=== PATIENT | male | born 1945 | race Caucasian/White ===

== ENCOUNTER 2017-01-21 05:52 | Inpatient (IN) | payer OTHER ==
[2017-01-13 10:47] LABS: HEMATOCRIT 43.7 % (42.0-52.0); HEMOGLOBIN 14.6 gm/dL (14.0-18.0); MCH 29.4 pg (26.0-34.0); MCHC 33.5 g/dL (28.0-37.0); MCV 87.7 fL (80.0-100.0); RBC 4.98 mil/uL (4.50-6.00); RDW 13.9 % (10.5-14.5); URINE BILIRUBIN NEGATIVE (Negative); URINE BLOOD NEGATIVE (Negative); URINE COLOR YELLOW; URINE GLUCOSE-RANDOM* NEGATIVE (Negative); URINE KETONES NEGATIVE (Negative); URINE LEUKOCYTES-REFLEX NEGATIVE (Negative); URINE PROTEIN (DIPSTICK) NEGATIVE (Negative); WBC 7.1 thou/uL (4.0-11.0)
[2017-01-13 11:01] LABS: ALBUMIN 3.9 g/dL (3.4-5.0); CALCIUM 9.1 mg/dL (8.5-10.1); POTASSIUM 4.9 mmol/L (3.5-5.1); TOTAL BILIRUBIN 1.2 mg/dL (<0.1-1.0)
[2017-01-13 11:04] LABS: APTT 27.8 Seconds (24.5-32.8); PROTIME 10.5 Seconds (9.3-11.4)
[~2017-01-21] VITALS: Ht 193 cm; Wt 113.4 kg
[2017-01-21] VITALS (9 sets, daily range): BP systolic 91–114; BP diastolic 8–72
--- NOTE | ~2017-01-21 | EKG ---
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: maricarmen wick : 1945 Requested By: Vinnie Ball Order Number: [id number] MD: Avery Thibodeaux Measurements Intervals [place] Rate: 53 P: 81 MD: 236 QRS: 91 QRSD: 108 T: 74 QT: 436 QTc: 410 Interpretive Statements Sinus rhythm Prolonged MD interval Right axis deviation Compared to ECG 11/12/2014 06:31:33 No significant change was found Electronically Signed On 01-14-2017 8:07:07 CDT by Avery Thibodeaux [email or web address] <ELECTRONICALLY SIGNED> By: Avery Thibodeaux MD, [facility] 01/14/17 0807 D: [id number] 27 Avery Thibodeaux MD, FACC /EPI
--- NOTE | ~2017-01-21 | O ---
[facility] [place] [address] OPERATIVE REPORT Name: MARIO CAVAZOS Room #: 242-P [facility] IN ..#: [id number] Admission: 01/21/17 Attend Phys: Vinnie Ball MD Discharge: 01/22/17 Date of : 43 Report #: [id number] THIS REPORT FOR: //name// CC: Otto Ball DATE OF SERVICE: 01/21/2017 PREOPERATIVE DIAGNOSIS: Left internal carotid artery stenosis, asymptomatic. FINAL DIAGNOSIS: Left internal carotid artery stenosis, asymptomatic. OPERATIVE PROCEDURE PERFORMED: Left internal carotid endarterectomy without patch closure. SURGEON: Vinnie Ball M.D. DIETARY AID: Beth. ANESTHESIA: General. OPERATIVE INDICATIONS: The patient is a 71-year-old male who has known history of a left internal carotid artery stenosis. This stenosis has been followed and has progressed into a high grade stenosis. This was confirmed with angiography. The patient has been asymptomatic. He is admitted and brought to the operating room now for carotid endarterectomy. OPERATIVE SUMMARY: The patient was brought in the operating room and placed on the OR table in supine position. After anesthesia was induced via the general endotracheal route and monitoring lines had been positioned, the patient was prepped and draped in sterile fashion with chlorhexidine. We made via oblique incision in front of the sternocleidomastoid muscle. Dissection carried down through the subcutaneous fat and through the platysma. We dissected medial to the jugular vein and ligated the facial vein. We identified the contents of the carotid sheath and dissected free the common internal and external carotid arteries from surrounding tissue. Cranial nerve 10 and the ansa nerves were identified. Care was taken not to injure them. We did not visualize the hypoglossal nerve. We gave 15,000 units of intravenous heparin. We clamped the internal, then common, then external carotid arteries. The common carotid arteriotomy was made and extended up into the internal carotid artery. A 12-Spanish shunt was placed in the internal carotid artery and then the common carotid artery to pry blood flow to the brain during the remainder of this case. EEG was monitored and there were no changes noted. We then dissected the plaque from the vessel wall. The plaque was amputated proximally. It had nice tapering distally. An eversion endarterectomy was performed of the external carotid artery. All loose were then debrided from the vessel wall under [facility] [address] [place] [address] OPERATIVE REPORT Name: MARIO CAVAZOS Room #: 242-P [facility] IN ..#: [id number] Admission: 01/21/17 Attend Phys: Vinnie Ball MD Discharge: 01/22/17 Date of : 43 Report #: [id number] loupe magnification. Once this was satisfactory, the arteriotomy was closed primarily with a running 6-0 Prolene suture. Prior to completing the closure, the shunt was removed. The site was flushed both retrograde and antegrade and de-airing was performed by releasing the clamp on the external carotid artery. After completing the closure, the clamp on the common was released and then finally on the internal. We then gave a 100 mg of protamine to reverse the heparin. We inspected the sites, found no additional sutures needed. Doppler signals showed at least biphasic signals present in the common internal and external carotid arteries. Once satisfactory hemostasis was achieved, the wound was closed in multiple layers with absorbable suture. Procedure completed, the patient was taken to the ICU in stable condition. Neurologic exam is pending at the time of this dictation. <ELECTRONICALLY SIGNED> By: Vinnie Ball MD 01/22/17 2156 1235 1402 Vinnie Ball MD /nt
[~2017-01-21 05:52] MED LIST: ASPIR 8181 MG PO; AVAPRO 150 MG150 M1 PO; BYSTOLIC 5 MG5 M1 PO; BYSTOLIC10 MG PO; CRESTOR20 MG PO; DULERA 200 MCG/13 GM INH; FISH OIL 1,001000 M2 PO; FISH OIL 1,2001 EAC3 PO; LEVAQUIN 500 M500 M2 PO; LEVOTHYROXIN0.112 M1 PO; LIPITOR10 MG PO; MATURE MULTIVITAMIN PO; MEN'S ONE DAIL1 EAC1 PO; PLAVIX 75 MG TA75 M1 PO; PREDNISONE 5 MG5 M1 PO; PRESERVISION A1 EAC2 PO; ZETIA10 MG PO
[2017-01-22] VITALS (7 sets, daily range): BP systolic 105–137; BP diastolic 35–59
[2017-01-22 06:22] LABS: HEMATOCRIT 35.4 % (42.0-52.0); HEMOGLOBIN 12.2 gm/dL (14.0-18.0); MCH 29.8 pg (26.0-34.0); MCHC 34.4 g/dL (28.0-37.0); MCV 86.8 fL (80.0-100.0); RBC 4.08 mil/uL (4.50-6.00); RDW 13.7 % (10.5-14.5); WBC 8.7 thou/uL (4.0-11.0)
[2017-01-22 06:29] LABS: CALCIUM 8.6 mg/dL (8.5-10.1); CREATININE 0.8 mg/dL (0.7-1.3); POTASSIUM 4.1 mmol/L (3.5-5.1)
[2017-01-22] MEDS ORDERED: PLAVIX 75 MG TA75 M1 PO (09:17)
[2017-01-22] MEDS ORDERED: ASPIRIN325 PO (09:18)
[2017-01-22] MEDS ORDERED: HOME MEDICATION INH (09:21)
== END 2017-01-22 10:30 | disposition home or self-care (01) | DRG 39 ==
LOC: TBA 05:52 → ICU 05:52 → PRE 08:31 → ICU 15:20
PROVIDERS: Nurse Practitioner; Thoracic Surgery (Cardiothoracic Vascular Surgery)
PROC: 03CL0ZZ Extirpation of Matter from Left Internal Carotid Artery, Open Approach (ICD-10-PCS; principal; 2017-01-21)
PROC: 03HY32Z Insertion of Monitoring Device into Upper Artery, Percutaneous Approach (ICD-10-PCS; 2017-01-21)
PROC: 4A133B1 Monitoring of Arterial Pressure, Peripheral, Percutaneous Approach (ICD-10-PCS; 2017-01-21)
PROC: 4A133J1 Monitoring of Arterial Pulse, Peripheral, Percutaneous Approach (ICD-10-PCS; 2017-01-21)
DX: I65.22 Occlusion and stenosis of left carotid artery (principal); I10 Essential (primary) hypertension; E03.9 Hypothyroidism, unspecified; M19.90 Unspecified osteoarthritis, unspecified site; E78.5 Hyperlipidemia, unspecified; I25.10 Atherosclerotic heart disease of native coronary artery without angina pectoris; I73.9 Peripheral vascular disease, unspecified; R91.1 Solitary pulmonary nodule; Z95.1 Presence of aortocoronary bypass graft
CPT/HCPCS: 10078; 50010; 50101; 50386; 50417; 51301; 56524; 56526; 56528; 56534; 62110; 62900; 65020; 65040; 65043; 70005

== ENCOUNTER → 2017-07-23 | Outpatient (CLI) | payer OTHER ==
[~2017-07-23] MED LIST changes: +ASPIRIN325 PO; +HOME MEDICATION INH
== END ==
LOC: RAD 08:12
DX: R06.02 Shortness of breath (principal); R06.2 Wheezing

== ENCOUNTER 2018-05-07 06:58 | Observation (INO) | payer OTHER ==
[~2018-05-07] VITALS: Ht 193 cm; Wt 118.7 kg
--- NOTE | ~2018-05-07 | EKG ---
[address] [address] ELECTROCARDIOGRAM REPORT Name: MARIO CAVAZOS Room #: 211-P [facility] M.R.#: [id number] Admission: 05/07/18 Attend Phys: Shade Carreon MD, Discharge: Date of : 43 Report #: [id number] THIS REPORT FOR: //name// [facility] Test Date: 2018-05-07 Test Time: 11:38:14 Pat Name: MARIO CAVAZOS Department: Room: 211 P Gender: M Insurance Loss Assessor: Jon URBINA : 1945 Requested By: Lesa Levin Order Number: [id number] MD: Chace Givens Measurements Intervals [place] Rate: 47 P: 66 [place]: 273 QRS: 81 QRSD: 164 T: 55 QT: 480 QTc: 425 Interpretive Statements Sinus bradycardia Prolonged [place] interval Right bundle branch block Compared to ECG 01/13/2017 10:28:00 Right bundle-branch block now present Electronically Signed On 05-07-2018 15:25:32 COMMERCIAL CREDIT ANALYST by Chace Givens [email or web address] <ELECTRONICALLY SIGNED> By: Chace Givens MD 05/07/18 1525 1138 1138 Chace Givens MD /EPI
--- NOTE | ~2018-05-07 | EKG ---
[place] [address] [address] [facility] [employer] [place] [address] ELECTROCARDIOGRAM REPORT Name: MARIO CAVAZOS Room #: 211-P [facility] M.R.#: [id number] Admission: 05/07/18 Attend Phys: Shade Carreon MD, Discharge: Date of : 43 Report #: [id number] THIS REPORT FOR: //name// [facility] Test Date: 2018-05-08 Test Time: 06:48:32 Pat Name: MARIO CAVAZOS Department: Room: 211 P Gender: M Drug And Alcohol Treatment Specialist: Shailesh GOODWIN : 1945 Requested By: Lesa Levin Order Number: [id number] MD: Avery Thibodeaux Measurements Intervals [place] Rate: 55 P: 70 [place]: 249 QRS: 90 QRSD: 163 T: 56 QT: 483 QTc: 462 Interpretive Statements Sinus rhythm Prolonged [place] interval Right bundle branch block Compared to ECG 05/07/2018 11:38:14 Sinus bradycardia no longer present Electronically Signed On 05-08-2018 10:45:26 CARPENTER PROTOTYPE by Avery Thibodeaux [email or web address] <ELECTRONICALLY SIGNED> By: Avery Thibodeaux MD, [facility] 05/08/18 1045 0648 0648 Avery Thibodeaux MD, [facility] /EPI
--- NOTE | ~2018-05-07 | CATHLAB ---
[facility] [address] [place] [address] INVASIVE PROCEDURE REPORT Name: MARIO CAVAZOS Room #: 211-P [facility] IN .R.#: [id number] Admission: 05/07/18 Attend Phys: Shade Carreon, Discharge: 05/08/18 Date of : 43 Date of Service: 05/14/18 1534 Report #: [id number] THIS REPORT FOR: //name// APPROVED REPORT Study performed: 05/07/2018 08:11:05 Patient Details Patient Status: Out-Patient Room #: The patient is a 72 year-old male Event Personnel Shade Carreon Car Body Mechanic, Monique VillaltaR, Cortez White Amber Monitor, Cliff Rabago RN Procedures Performed Art Access - L femoral artery* 91257 Initial Mod Sed Same Phys/QHP Gr5y 747298 38374 Mod Sed Same Phys/QHP Ea 281354 Left Heart Cath Coronaries, Bypass Grafts 5947149 LHCCORCABG Aortogram Abdominal Peripheral Angio 513389 SHAHRIAR Place w/wo Plasty Single DIAG 741979 Hemostasis w/ Mynx Indication Chest pain Procedure Narrative The patient was brought electively to the Cardiac Catheterization Laboratory and was prepped and draped in a sterile manner. The Right Groin^ was infiltrated with 1% Lidocaine subcutaneous anesthesia. A PINNACLE 6FR Sheath #[id number] sheath was inserted into the LFA^. Coronary angiography was performed using coronary diagnostic catheters. The right coronary system was accessed and visualized with a JR 4 catheter. The left coronary system was accessed and visualized with a JL 4 catheter. The left ventricle was accessed and visualized with a Pigtail catheter. Left ventriculogram was performed in JIANG projection. An aortogram of the abdominal aorta was performed. Pre-demployment femoral angiogram was performed . Closure device was deployed with a 6 Fr Mynx. The patient tolerated the procedure well and there were no complications associated with the procedure. There was no hematoma. Intraoperative Conscious Sedation Sedation start time: 08:28 Case end Time: 09:39 Fentanyl 150 mcg Versed [address] [address] INVASIVE PROCEDURE REPORT Name: MARIO CAVAZOS Room #: 211-P [facility] IN ..#: [id number] Admission: 05/07/18 Attend Phys: Shade Carreon, Discharge: 05/08/18 Date of : 43 Date of Service: 05/14/18 1534 Report #: [id number] Fluoro Time: 21.00 minutes Dose: DAP 22927.00 cGycm2 2467 mGy Contrast Type and Amount: Omnipaque 280 ml Hemodynamics The aortic pressure is 144/66 mmHg with a mean of 87 mmHg. The left ventricular pressure is 224/9 mmHg with a mean of mmHg. The left ventricular end diastolic pressure is 19 mmHg. PCI Technique Lesion Percutaneous coronary intervention was performed on the first diagnonal branch segment. A LAUNCHER 6FR LCB #[id number] Guide Catheter was used to engage the ostium. A Luge Wire .014 x 182CM #[id number] Interventional Guidewire was used to cross the lesion. BALLOON DILATION A Balloon catheter Sprinter OTW 2.5 x 12 #[id number] was inserted and inflated up to 6.00atm for 28seconds. Additional Inflation: 10.00atm for 22seconds. Additional Inflation: 12.00atm for 20seconds. STENT DEPLOYMENT A drug-eluting stent XIENCE GIDEON RX 2.5 X 12 #[id number] was inserted and inflated up to 16.00atm for 23seconds. Additional Inflation: 18.00atm for 24seconds. Conclusion #1 successful PTCA stent of a subtotaled SVG to diagonal anastomosis. Segment of drug-eluting stent healing 0% residual and JESUSITA grade 3 flow ostial disease is noted in that vein graft. 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 #6 normal left ventricular size and systolic function lower limits of normal subtle apical wall leg EF 50% #7 technically difficult say the right common iliac is occluded. 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 Continue DDAVP T. Abdominal ultrasound to follow noninvasively small aortic aneurysm. <ELECTRONICALLY SIGNED> By: Shade Carreon MD, FACC 05/14/18 1534 1534 1534 Shade Carreon MD, FACC /INF
[2018-05-07 07:25] LABS: HEMATOCRIT 41.7 % (42.0-52.0); HEMOGLOBIN 13.6 gm/dL (14.0-18.0); MCH 29.1 pg (26.0-34.0); MCHC 32.7 g/dL (28.0-37.0); RBC 4.68 mil/uL (4.50-6.00); RDW 13.5 % (10.5-14.5); WBC 5.9 thou/uL (4.0-11.0)
[2018-05-07 07:27] LABS: CALCIUM 9.7 mg/dL (8.5-10.1); POTASSIUM 4.4 mmol/L (3.5-5.1)
[2018-05-07 07:28] VITALS: BP 171/71
[2018-05-07] MEDS ORDERED: ASPIR 8181 MG PO (07:32)
[2018-05-07] MEDS ORDERED: VENTOLIN HFA 1818 GM INH (07:33)
[2018-05-07] MEDS ORDERED: ALBUTEROL2.5 MG/31 INH (07:34)
[2018-05-07] MEDS ORDERED: EFFIENT10 MG PO (14:26)
[2018-05-07] MEDS ORDERED: ASPIRIN325 PO (14:26)
[2018-05-07 15:53] VITALS: BP 166/100
[2018-05-07 20:07] VITALS: BP 162/77
[2018-05-07 23:25] VITALS: BP 139/77
[2018-05-08 03:35] VITALS: BP 159/71
[2018-05-08 05:30] LABS: HEMATOCRIT 37.6 % (42.0-52.0); HEMOGLOBIN 12.8 gm/dL (14.0-18.0); MCHC 34.1 g/dL (28.0-37.0); MCV 87.8 fL (80.0-100.0); RBC 4.28 mil/uL (4.50-6.00); RDW 13.7 % (10.5-14.5); WBC 6.5 thou/uL (4.0-11.0)
[2018-05-08 05:46] LABS: ALBUMIN 3.2 g/dL (3.4-5.0); ANION GAP 8 mmol/L (7-16); BUN 14 mg/dL (7-18); CHLORIDE 105 mmol/L (98-107); CO2 29 mmol/L (21-32); CREATININE 0.9 mg/dL (0.7-1.3); GLUCOSE 111 mg/dL (74-106); POTASSIUM 4.2 mmol/L (3.5-5.1); SGOT 19 U/L (15-37); SGPT 34 U/L (30-65); SODIUM 142 mmol/L (136-145); TOTAL BILIRUBIN 0.9 mg/dL (<0.1-1.0); TOTAL PROTEIN 6.4 g/dL (6.4-8.2); TROPONIN-I <0.06 ng/mL (<0.06)
[2018-05-08 07:25] VITALS: BP 182/77
[2018-05-08 09:08] VITALS: BP 182/77
== END 2018-05-08 10:50 | disposition home or self-care (01) ==
LOC: CATH 06:58 → 2N 09:18 → CATH 14:30 → 2N 05-08 10:50
PROVIDERS: Internal Medicine Cardiovascular Disease; Nurse Practitioner Adult Health
DX: I25.118 Atherosclerotic heart disease of native coronary artery with other forms of angina pectoris (principal); I10 Essential (primary) hypertension; E78.5 Hyperlipidemia, unspecified; I73.9 Peripheral vascular disease, unspecified; I65.22 Occlusion and stenosis of left carotid artery; M19.90 Unspecified osteoarthritis, unspecified site; E78.00 Pure hypercholesterolemia, unspecified; E03.9 Hypothyroidism, unspecified; Z87.891 Personal history of nicotine dependence; Z98.890 Other specified postprocedural states; Z95.1 Presence of aortocoronary bypass graft; Z79.899 Other long term (current) drug therapy; Z79.02 Long term (current) use of antithrombotics/antiplatelets; Z79.82 Long term (current) use of aspirin; Z72.89 Other problems related to lifestyle; Z23 Encounter for immunization

== ENCOUNTER → 2019-02-02 | Outpatient (CLI) | payer OTHER ==
[~2019-02-02] VITALS: Ht 193 cm; Wt 113.4 kg
[~2019-02-02] MED LIST changes: +ALBUTEROL2.5 MG/31 INH; +EFFIENT10 MG PO; +IRBESARTAN300 MG PO; +SYNTHROID112 MC1 PO; +VENTOLIN HFA 1818 GM INH
--- NOTE | 2019-02-03 16:06 | PATH ---
[facility] [place] [address] PATHOLOGY RPT PROCEDURE Name: MARIO CAVAZOS Room #: REG [facility].#: [id number] Admission: 02/02/19 Date of : 43 Discharge: Report #: [id number] Path Case #: [id number] [facility] Accession Number: [id number] . 01 Material submitted: . PART A: colon - POLYP AT ASCENDING COLON X2. Modifiers: ascending PART B: colon - POLYP AT TRANSVERSE COLON. Modifiers: transverse PART C: rectum - RECTAL POLYP X2 . 01 Clinical history: . Pre-OP DX: Hx of colon cancer, dysp Post-OP DX: Grade B esophagitis, hiatal hernia, Schatzki's ring, colon polyp, diverticulosis, hemorrhoids.-Internal . 02 Diagnosis: A. Polyp x2, ascending colon, endoscopic biopsy: - Tubular adenoma identified in multiple fragments. - Negative for high grade dysplasia. . B. Polyp, at transverse colon, endoscopic biopsy: - Tubular adenoma admixed with hyperplastic changes. - Negative for high grade dysplasia. . C. Polyp x2, rectal polyp, endoscopic biopsy: - Hyperplastic polyp present in both fragments. - Negative for dysplasia. . (IUV:mml; 02/03/2019) QLM/02/03/2019 . 02 Electronically signed: . Elva Urias MD, Pathologist NPI- [id number] . 01 Gross description: . A. Received in formalin labeled "Mario Cavazos BX of polyp at ascending colon x2," are 3 segments of gonzalez soft tissue measuring 1.0 x 0.8 x 0.3 cm in aggregate dimensions and ranging from 0.3 to 0.5 cm in maximum dimension. The specimen is submitted entirely in cassette A1. . B. Received in formalin labeled "Mario Cavazos BX of polyp at transverse colon," is a single segment of gonzalez soft tissue measuring 0.4 cm in maximum dimension. The specimen is entirely submitted in cassette B1. . C. Received in formalin labeled "Mario Cavazos BX of rectal polyp," and additionally labeled on the requisition as "x2," are 3 segments of gonzalez soft tissue measuring 0.8 x 0.5 x 0.3 cm in aggregate dimensions and [address] [address] PATHOLOGY RPT PROCEDURE Name: MARIO CAVAZOS [id number] Admission: 02/02/19 Date of : 43 Discharge: Report #: [id number] Path Case #: [id number] ranging from 0.1 to 0.4 cm in maximum dimension. The specimen is submitted entirely in cassette C1. (TSD; 02/02/2019) TOB/TOB . 02 Pathologist provided ICD-10: D12.2, D12.3, K62.1 . 02 CPT . 274373, 464215, 237584 Specimen Comment: A courtesy copy of this report has been sent to Specimen Comment: [phone], . Specimen Comment: Report sent to / DR HENNING Performed at: [address], [place] [id number] MD Maxim Blood MD Phone: [phone] Performed at: [address] [id number] MD Elva Urias MD Phone: [phone]
--- NOTE | 2019-02-09 08:08 | P ---
[facility] [place] [address] [place] [address] PROCEDURE REPORT Name: MARIO CAVAZOS [facility] [id number] Admission: 02/02/19 Attend Phys: Evangelist Wright Discharge: Date of : 43 Report #: [id number] THIS REPORT FOR: //name// CC: Otto Kendall DATE OF SERVICE: 02/02/2019 PROCEDURE PERFORMED: Upper endoscopy with esophageal dilation. HISTORY OF PRESENT ILLNESS: The patient is a 73-year-old male with a history of dysphagia, for many years only to solids. No previous history of upper endoscopy, no significant history of heartburn. He reports taking Tums on a p.r.n. basis. DESCRIPTION OF PROCEDURE: The risks and benefits of the procedure were explained to the patient, those risks including but not limited to bleeding, perforation and the risk of sedation. He understood these risks and gave informed consent. Sedation was given using propofol per anesthesia. Next, using a standard Olympus upper endoscope, the scope was placed in the patient's mouth and advanced under direct vision through the esophagus, stomach and into the second portion of the duodenum. The larynx was normal in appearance. The upper and mid esophagus was normal. In the distal esophagus, a moderate Schatzki's ring was noted with grade B erosive esophagitis. The scope passed through this area without resistance. Upon entering the stomach, a medium-sized hiatal hernia was noted. Overall, the gastric mucosa was normal. The pylorus was normal and patent. The duodenal bulb, first and second portion were all normal. The scope was then brought back up into the patient's stomach and a Savary guidewire was inserted through the scope and left in place as the scope was then withdrawn. Next, I performed serial Savary dilation starting with 45 followed by 48 and then eventually 51. Inserting the scope in between each one, there was no evidence of mucosal tear after each dilation. The scope was then withdrawn and the procedure terminated. The patient tolerated the procedure well. IMPRESSION: 1. Moderate Schatzki's ring. 2. Grade B erosive esophagitis. 3. Hiatal hernia. 4. Otherwise, normal upper endoscopy. RECOMMENDATIONS: 1. Observe the patient post-dilation. 2. Would recommend daily PPI therapy. [address] [address] PROCEDURE REPORT Name: MARIO CAVAZOS Room #: REG CL[facility] Walsh#: [id number] Admission: 02/02/19 Attend Phys: Evangelist Wright Discharge: Date of : 43 Report #: [id number] Thank you for allowing me to participate in his care. <ELECTRONICALLY SIGNED> By: Evangelist Kendall MD 02/09/19 0808 1018 00 Evangelist Kendall MD /nt
--- NOTE | 2019-02-09 08:08 | P ---
[facility] [place] [address] PROCEDURE REPORT Name: MARIO CAVAZOS Room [facility]: [facility] [id number] Admission: 02/02/19 Attend Phys: Evangelist Wright Discharge: Date of : 43 Report #: [id number] THIS REPORT FOR: //name// CC: Otto Kendall DATE OF SERVICE: 02/02/2019 PROCEDURE PERFORMED: Colonoscopy with biopsies. HISTORY OF PRESENT ILLNESS: The patient is a 73-year-old male with a history of colon polyps, last colonoscopy approximately 5 years ago, reportedly. He denies any symptoms. No family history of colon cancer. DESCRIPTION OF PROCEDURE: The risks and benefits of the procedure were explained to the patient, those risks including but not limited to bleeding, perforation and the risk of sedation. He understood these risks and gave informed consent. Sedation was given using propofol per Anesthesia. Next, a digital rectal exam was initially performed, which was normal. Next, using a standard Olympus colonoscope, the scope was placed in the patient's anus and advanced under direct vision to the cecum. The overall prep was good. The cecum and ileocecal valve were normal in appearance. In the ascending colon, two sessile polyps were noted, ranging from 3-4 mm in size, both removed by cold forceps. The transverse colon had 3 mm sessile polyp, also removed with cold forceps. Multiple diverticula were noted in the descending and sigmoid colon, no evidence of inflammation. In the rectum, there were two 3 mm sessile polyps, both removed by cold forceps. On retroflexion, small to medium size nonbleeding internal hemorrhoids were noted. The scope was then withdrawn and the procedure terminated. The patient tolerated the procedure well. IMPRESSION: 1. Small colonic polyps. 2. Left-sided diverticulosis. 3. Internal hemorrhoids. 4. Otherwise, normal colonoscopy. RECOMMENDATIONS: 1. Await biopsy results. 2. Repeat colonoscopy in [address] [address] PROCEDURE REPORT Name: MARIO CAVAZOS Room #: REG Tam[facility] Walsh#: [id number] Admission: 02/02/19 Attend Phys: Evangelist Wright Discharge: Date of : 43 Report #: [id number] Thank you for allowing me to participate in his care. <ELECTRONICALLY SIGNED> By: Evangelist Kendall MD 02/09/19 0808 1052 2118 Evangelist Kendall MD /nt
== END | disposition home or self-care (01) ==
LOC: GI 08:00
DX: Z12.11 Encounter for screening for malignant neoplasm of colon (principal); Z86.010 Personal history of colon polyps; D12.2 Benign neoplasm of ascending colon; D12.3 Benign neoplasm of transverse colon; K62.1 Rectal polyp; K57.30 Diverticulosis of large intestine without perforation or abscess without bleeding; K64.8 Other hemorrhoids; K20.9 Esophagitis, unspecified; K22.2 Esophageal obstruction; K44.9 Diaphragmatic hernia without obstruction or gangrene; I10 Essential (primary) hypertension; I25.10 Atherosclerotic heart disease of native coronary artery without angina pectoris; E03.9 Hypothyroidism, unspecified; E78.5 Hyperlipidemia, unspecified; Z95.1 Presence of aortocoronary bypass graft; J45.909 Unspecified asthma, uncomplicated; Z98.890 Other specified postprocedural states; Z87.891 Personal history of nicotine dependence; Z79.899 Other long term (current) drug therapy; Z79.82 Long term (current) use of aspirin
CPT/HCPCS: 62110; 62900

== ENCOUNTER → 2019-11-04 | Outpatient (CLI) | payer OTHER | LOC: RAD 10:19 | DX: R06.02 Shortness of breath (principal); M47.814 Spondylosis without myelopathy or radiculopathy, thoracic region ==

== ENCOUNTER → 2019-11-18 | Outpatient (CLI) | payer OTHER | LOC: SJCVC 10:32 → SJCVCIMAG 10:32 | DX: R94.31 Abnormal electrocardiogram [ECG] [EKG] (principal); R00.1 Bradycardia, unspecified; I65.23 Occlusion and stenosis of bilateral carotid arteries; I45.10 Unspecified right bundle-branch block; Z98.890 Other specified postprocedural states ==

== ENCOUNTER → 2020-05-21 | Outpatient (CLI) | payer OTHER | LOC: SJCVCIMAG 09:44 | PROVIDERS: ATTEND Internal Medicine Cardiovascular Disease | DX: I25.10 Atherosclerotic heart disease of native coronary artery without angina pectoris (principal); I45.10 Unspecified right bundle-branch block; R00.1 Bradycardia, unspecified; I65.23 Occlusion and stenosis of bilateral carotid arteries; E78.00 Pure hypercholesterolemia, unspecified; I10 Essential (primary) hypertension; Z98.890 Other specified postprocedural states; Z95.1 Presence of aortocoronary bypass graft; Z95.5 Presence of coronary angioplasty implant and graft; Z79.82 Long term (current) use of aspirin; Z79.899 Other long term (current) drug therapy; Z87.891 Personal history of nicotine dependence ==

== ENCOUNTER → 2020-12-18 | Outpatient (CLI) | payer OTHER | LOC: SJCVCIMAG 12-10 15:49 | PROVIDERS: ATTEND Internal Medicine Cardiovascular Disease | DX: I65.23 Occlusion and stenosis of bilateral carotid arteries (principal); R94.31 Abnormal electrocardiogram [ECG] [EKG]; I45.2 Bifascicular block; I25.10 Atherosclerotic heart disease of native coronary artery without angina pectoris; E78.00 Pure hypercholesterolemia, unspecified; I10 Essential (primary) hypertension; E03.9 Hypothyroidism, unspecified; I73.9 Peripheral vascular disease, unspecified; Z95.5 Presence of coronary angioplasty implant and graft; Z95.1 Presence of aortocoronary bypass graft; Z98.890 Other specified postprocedural states; Z88.8 Allergy status to other drugs, medicaments and biological substances; Z79.82 Long term (current) use of aspirin; Z79.899 Other long term (current) drug therapy; Z87.891 Personal history of nicotine dependence ==

== ENCOUNTER → 2021-05-16 | Outpatient (CLI) | payer OTHER | LOC: SJCVCIMAG 09:55 | PROVIDERS: ATTEND Internal Medicine Cardiovascular Disease | DX: R94.31 Abnormal electrocardiogram [ECG] [EKG] (principal); I45.10 Unspecified right bundle-branch block; I74.5 Embolism and thrombosis of iliac artery; I70.8 Atherosclerosis of other arteries; I25.10 Atherosclerotic heart disease of native coronary artery without angina pectoris; I10 Essential (primary) hypertension; E78.00 Pure hypercholesterolemia, unspecified; M19.90 Unspecified osteoarthritis, unspecified site; E78.5 Hyperlipidemia, unspecified; E03.9 Hypothyroidism, unspecified; I65.22 Occlusion and stenosis of left carotid artery; I73.9 Peripheral vascular disease, unspecified; Z95.1 Presence of aortocoronary bypass graft; Z98.890 Other specified postprocedural states; Z87.891 Personal history of nicotine dependence; Z72.89 Other problems related to lifestyle; Z79.899 Other long term (current) drug therapy; Z88.8 Allergy status to other drugs, medicaments and biological substances ==